=== PATIENT | male | born 1950 | race American Indian/Alaskan Native ===

== ENCOUNTER 2019-01-02 12:36 | Observation (INO) | payer MEDICARE, OTHER ==
--- NOTE | 2019-01-01 11:26 | Anesthesia Consultation ---
Anesthesia Consult and Med Hx Date of service: 01/02/19 - Airway Anesthetic Teeth Evaluation: Good, Partials (Upper) ROM Head & Neck: Adequate Mental/Hyoid Distance: Adequate Mallampati Class: Class II Intubation Access Assessment: Probably Good - Pre-Operative Health Status ASA Pre-Surgery Classification: ASA3, ASA4 Proposed Anesthetic Plan: General - Pulmonary Hx Smoking: No Hx Sleep Apnea: Yes (DX SLEEP APNEA WITH CPAP USE.) - Cardiovascular System Hx Hypertension: Yes (2015) Hx Heart Attack/AMI: No Hx Cardia Arrhythmia: Yes (AFIB. Last CHF episode [id number] (EF 14% at the time)) Hx Internal Defibrillator: Yes ([id number] Never discharged per pt) - Gastrointestinal Hx Gastroesophageal Reflux Disease: Yes - Endocrine Hx Non-Insulin Dependent Diabetes: Yes - Hematic Hx Anemia: Yes - Additional Comments Anesthesia Medical History Comments: +Cardiac and Medical Clearance. Chronic systolic heart failure; nonischemic cardiomyopathy; VT. Pt states he is active and can walk as far as he wants. ECHO EF improved to 40-45%
[2019-01-01 11:27] LABS: Basophils # (Auto) 0.1 K/mm3 (0.0-0.1); Basophils % (Auto) 1.1 % (0.0-1.8); Eosinophils # (Auto) 0.2 K/mm3 (0.0-0.4); Eosinophils % (Auto) 3.1 % (0.0-4.3); Hematocrit 40.4 % (35.5-45.6); Hemoglobin 13.1 gm/dl (11.8-15.2); Lymphocytes # (Auto) 1.4 K/mm3 (1.2-5.4); Lymphocytes % (Auto) 27.1 % (13.4-35.0); Mean Corpuscular HGB Conc 33 % (32-34); Mean Corpuscular Volume 87 fl (84-94); Monocytes # (Auto) 0.7 K/mm3 (0.0-0.8); Monocytes % (Auto) 13.6 % (0.0-7.3); Platelet Count 244 K/mm3 (140-440); Red Blood Count 4.63 M/mm3 (3.65-5.03); Red Cell Distribution Width 14.9 % (13.2-15.2)
[2019-01-01 11:52] LABS: Alanine Aminotransferase 16 units/L (7-56); Albumin 3.8 g/dL (3.9-5); BUN/Creatinine Ratio 19; Blood Urea Nitrogen 15 mg/dL (9-20); Calcium 9.6 mg/dL (8.4-10.2); Hemolysis Index 19
[~2019-01-02 12:36] MED LIST: GENTAMICIN/NS 80 MG/100 ML 100 ML IV SCH; VANCOMYCIN/NS 1 GM/250 ML 1 GM/250 ML BAG IV SCH
[2019-01-02] MEDS ORDERED: LACTATED RINGERS 1,000 ML ONE (13:49)
[2019-01-02] MEDS ORDERED: MIDAZOLAM 2 MG/2 ML INJ IV NR (14:12)
[2019-01-02] MEDS ORDERED: NEOMY 40 MG/POLYMYXIN B 200,000 UNITS/ML (GU) AMPULE IR ONE (14:42)
[2019-01-02] MEDS ORDERED: SODIUM CHLORIDE P/F VIAL 10 ML 10 ML ONE ×3 (14:42→15:11)
[2019-01-02] MEDS ORDERED: BUPIVACAINE/PF (0.5%) 5 MG/1 ML 30 ML VIAL INFILTRATI ONE ×3 (14:42→16:30)
[2019-01-02] MEDS ORDERED: LACTATED RINGERS 1,000 ML IV SCH (15:00)
[2019-01-02] MEDS ORDERED: SODIUM CHLORIDE 0.9% 50 ML ONE (15:11)
[2019-01-02] MEDS ORDERED: SODIUM CHLORIDE 0.9% 500 ML 0 ML ONE (15:11)
[2019-01-02] MEDS ORDERED: rifAMPin 600 MG VIAL ONE (15:11)
[2019-01-02] MEDS ORDERED: GENTAMICIN 40 MG/ML VIAL 2 ML ONE (15:11)
[2019-01-02] MEDS ORDERED: LIDOCAINE MPF (2%) 20 MG/1 ML VIAL 5 ML ONE (15:14)
[2019-01-02] MEDS ORDERED: fentaNYL 100 MCG/2 ML INJ ONE (15:15)
[2019-01-02] MEDS ORDERED: PROPOFOL 200 MG/20 ML VIAL IV ONE (15:15)
--- NOTE | 2019-01-02 15:46 | Anesthesia Day of Surgery ---
Anesthesia Day of Surgery - Day of Surgery Patient Examined: Yes Patient H&P Reviewed: Yes Patient is NPO: Yes Beta Blockers: Yes Cardiac Clearance: Yes
[2019-01-02] MEDS ORDERED: SODIUM CHLORIDE IR ONE (16:20)
[2019-01-02] MEDS ORDERED: [UNRECOGNIZED DRUG - OTHER] IR ONE (16:20)
[2019-01-02] MEDS ORDERED: GENTAMICIN 80 MG IR ONE (16:20)
[2019-01-02] MEDS ORDERED: NEOMY IR ONE (16:20)
[2019-01-02] MEDS ORDERED: RIFAMPIN 600 MG IR ONE (16:20)
[2019-01-02] MEDS ORDERED: VANCOMYCIN 1000 MG INJ ONE (16:23)
[2019-01-02] MEDS ORDERED: SODIUM CHLORIDE 0.9% 500 ML 500 ML ONE (16:24)
[2019-01-02] MEDS ORDERED: SODIUM CHLORIDE 0.9% 250ML 250 ML ONE (16:25)
[2019-01-02] MEDS ORDERED: SODIUM CHLORIDE 0.9% 500 ML IVPB IRRIGATION ONE (16:30)
[2019-01-02] MEDS ORDERED: WATER FOR IRRIG STERILE 1,000 ML BOTTLE IR ONE (16:30)
[2019-01-02] MEDS ORDERED: ONDANSETRON 4 MG/2 ML INJ IV PRN (17:38)
[2019-01-02] MEDS ORDERED: NALOXONE 0.4 MG/1 ML INJ IV PRN (17:38)
[2019-01-02] MEDS ORDERED: DEXTROSE 50% IN WATER (25GM) 50 ML SYRINGE IV PRN ×2 (17:38→17:50)
--- NOTE | 2019-01-02 17:38 | Short Stay Summary ---
Short Stay Documentation Date of service: 01/02/19 - History H&P: obtained from office - Allergies and Medications Current Medications: Allergies oxycodone [From Percocet] Allergy (Verified 12/27/18 16:29) Nausea , HEADACHE propoxyphene [From Darvon] Allergy (Verified 12/27/18 16:31) Nausea , HEADACHE simvastatin Allergy (Verified 12/27/18 16:32) MUSCLE WEAKNESS valsartan [From Diovan] Allergy (Verified 12/27/18 16:32) Unknown WAS TOLD BY MD NOT TO TAKE- UNKNOWN REACTION tuberculin,PPD,multi-puncture Adverse Reaction (Verified 12/27/18 16:31) Rash Home Medications Medication Instructions Recorded Confirmed Last Taken Type Aspirin 325 mg PO QDAY 12/27/18 01/02/19 12/25/18 08:00 History AtorvaSTATin [Lipitor] 10 mg PO QHS 12/27/18 01/02/19 01/02/19 08:00 History Cyanocobalamin (Vitamin B-12) 2,500 mcg PO DAILY 12/27/18 01/02/19 01/01/19 08:00 History [Vitamin B12] Furosemide [Lasix TAB] 40 mg PO BID 12/27/18 01/02/19 01/02/19 08:00 History ISOSORBIDE MONOnitrate [Imdur ER] 30 mg PO DAILY 12/27/18 01/02/19 01/02/19 08:00 History L. Acidophilus/Pectin, [place] 1 each PO DAILY 12/27/18 01/02/19 01/02/19 09:00 History [Acidophilus Probiotic Capsule] Losartan [Cozaar] 100 mg PO DAILY 12/27/18 01/02/19 01/02/19 08:00 History [place]-3/Dha/Epa/Fish Oil [Fish Oil 1 each PO DAILY 12/27/18 01/02/19 12/31/18 08:00 History 1,200 mg Softgel] Omeprazole 40 mg PO BID 12/27/18 01/02/19 01/01/19 08:00 History Spironolactone [Aldactone] 12.5 mg PO DAILY 12/27/18 01/02/19 01/01/19 08:00 History carvediloL [Coreg] 25 mg PO BID 12/27/18 01/02/19 01/02/19 08:00 History hydrALAZINE [Apresoline] 25 mg PO TID 12/27/18 01/02/19 01/02/19 08:00 History metFORMIN [Glucophage] 500 mg PO BID 12/27/18 01/02/19 01/01/19 18:00 History Active Medications Hydromorphone HCl (Dilaudid) 0.5 mg IV Q10MIN PRN PRN Reason: Pain , Severe (7-10) Stop: 01/02/19 23:59 Gentamicin Sulfate/Sodium Chloride (Gentamicin/Ns 80 Mg/100 Ml) 100 mls @ 200 mls/hr IV PREOP YOBANI Lactated Ringer's (Lactated Ringers) 1,000 mls @ 42 mls/hr IV DIRECT YOBANI Last Admin: 01/02/19 13:50 Dose: 42 mls/hr Documented by: Midazolam HCl (Versed) 2 mg IV PREOP NR Stop: 01/02/19 23:59 Last Admin: 01/02/19 14:25 Dose: 2 mg Documented by: - Brief post op/procedure progress note Date of procedure: 01/02/19 Pre-op diagnosis: ED Post-op diagnosis: same Procedure: ipp Coloplast (24 titan, 1RTE) Anesthesia: GETA Surgeon: KALYN CULP Pathology: none Condition: stable - Hospital course Hospital course: pt has abx & pain meds at home pt & daughter have copy of post op info crump & wrap removed dc home - Disposition Condition at discharge: Stable Disposition: DC-01 TO HOME OR SELFCARE Short Stay Discharge Plan Follow up with: JESUS GONZALEZ MD [Primary Care Provider] - 7 Days
--- NOTE | 2019-01-02 17:41 | Consultation ---
History of Present Illness - Reason for Consult Consult date: 01/02/19 Medical Management HTN, DM, Requesting physician: KALYN WATSON - History of Present Illness 68 YO Male with HTN, Obesity, BRITTANY, Atrial Fib, DM, GERD, Systolic CHF(EF 15%) S/P ICD Placement, DE. Admitted for elective Urologic surgery. Consult placed my Dr. Watson for medical management. Pt seen and evaluated upon arrival to his room. Pt denies fever, chills, CP, Palpitations, NVD, Trauma, productive cough, or recent ill contacts. No reported nursing events. Past History Past Medical History: other (see hpi) Past Surgical History: Other (Penile implant) Family history: diabetes, hypertension Medications and Allergies Allergies Allergy/AdvReac Type Severity Reaction Status Date / Time oxycodone [From Percocet] Allergy Nausea , Verified 12/27/18 16:29 HEADACHE propoxyphene [From Darvon] Allergy Nausea , Verified 12/27/18 16:31 HEADACHE simvastatin Allergy MUSCLE Verified 12/27/18 16:32 WEAKNESS valsartan [From Diovan] Allergy Unknown Verified 12/27/18 16:32 tuberculin,PPD,multi-puncture AdvReac Rash Verified 12/27/18 16:31 Home Medications Medication Instructions Recorded Confirmed Last Taken Type Aspirin 325 mg PO QDAY 12/27/18 01/02/19 12/25/18 08:00 History AtorvaSTATin [Lipitor] 10 mg PO QHS 12/27/18 01/02/19 01/02/19 08:00 History Cyanocobalamin (Vitamin B-12) 2,500 mcg PO DAILY 12/27/18 01/02/19 01/01/19 08:00 History [Vitamin B12] Furosemide [Lasix TAB] 40 mg PO BID 12/27/18 01/02/19 01/02/19 08:00 History ISOSORBIDE MONOnitrate [Imdur ER] 30 mg PO DAILY 12/27/18 01/02/19 01/02/19 08:00 History L. Acidophilus/Pectin, [place] 1 each PO DAILY 12/27/18 01/02/19 01/02/19 09:00 History [Acidophilus Probiotic Capsule] Losartan [Cozaar] 100 mg PO DAILY 12/27/18 01/02/19 01/02/19 08:00 History [place]-3/Dha/Epa/Fish Oil [Fish Oil 1 each PO DAILY 12/27/18 01/02/19 12/31/18 08:00 History 1,200 mg Softgel] Omeprazole 40 mg PO BID 12/27/18 01/02/19 01/01/19 08:00 History Spironolactone [Aldactone] 12.5 mg PO DAILY 12/27/18 01/02/19 01/01/19 08:00 History carvediloL [Coreg] 25 mg PO BID 12/27/18 01/02/19 01/02/19 08:00 History hydrALAZINE [Apresoline] 25 mg PO TID 12/27/18 01/02/19 01/02/19 08:00 History metFORMIN [Glucophage] 500 mg PO BID 12/27/18 01/02/19 01/01/19 18:00 History Active Meds: Active Medications Hydromorphone HCl (Dilaudid) 0.5 mg IV Q10MIN PRN PRN Reason: Pain , Severe (7-10) Stop: 01/02/19 23:59 Gentamicin Sulfate/Sodium Chloride (Gentamicin/Ns 80 Mg/100 Ml) 100 mls @ 200 mls/hr IV PREOP YOBANI Lactated Ringer's (Lactated Ringers) 1,000 mls @ 42 mls/hr IV DIRECT YOBANI Last Admin: 01/02/19 13:50 Dose: 42 mls/hr Documented by: Midazolam HCl (Versed) 2 mg IV PREOP NR Stop: 01/02/19 23:59 Last Admin: 01/02/19 14:25 Dose: 2 mg Documented by: Review of Systems Constitutional: no weight loss, no weight gain, no fever, no chills Ears, nose, mouth and throat: no ear pain, no ear discharge, no tinnitis, no decreased hearing, no nasal congestion, no nasal discharge, no sinus pressure Cardiovascular: no chest pain, no orthopnea, no rapid/irregular heart beat, no edema Respiratory: no cough, no cough with sputum, no hemoptysis, no shortness of breath, no dyspnea on exertion Gastrointestinal: no nausea, no vomiting, no diarrhea, no constipation, no change in bowel habits, no hematemesis Genitourinary Male: no hematuria, no flank pain, no discharge, no urinary frequency, no urinary hesitancy, no nocturia, no incontinence, no erectile dysfunction Rectal: no pain, no incontinence, no bleeding Musculoskeletal: no neck stiffness, no neck pain, no low back pain Integumentary: no rash, no pruritis, no redness, no wounds, no jaundice, no boils Neurological: no head injury, no paralysis, no parathesias, no numbness, no tingling, no seizures, no tremors Psychiatric: no anxiety, no memory loss, no change in sleep habits, no sleep disturbances, no hypersomnia, no change in appetite, no change in libido Endocrine: no cold intolerance, no heat intolerance, no polyphagia, no polydipsia, no polyuria, no excessive sweating, no proptosis, no deepening of the voice, no high blood sugars Hematologic/Lymphatic: no easy bruising, no easy bleeding, no lymphadenopathy, no lymphedema, no thrombophilia Allergic/Immunologic: no urticaria, no allergic rhinitis, no anaphylaxis, no angioedema Exam - Constitutional Vitals: Temp Pulse Resp BP Pulse Ox 99.2 F 74 16 147/72 99 01/02/19 13:30 01/02/19 13:30 01/02/19 13:30 01/02/19 13:30 01/02/19 13:30 General appearance: Present: obese - EENT Eyes: Present: PERRL ENT: hearing intact, clear oral mucosa - Neck Neck: Present: supple, normal ROM - Respiratory Respiratory effort: normal Respiratory: bilateral: CTA - Cardiovascular Heart Sounds: Present: S1 & S2. Absent: rub, click - Extremities Extremities: pulses symmetrical, No edema Peripheral Pulses: within normal limits - Abdominal General gastrointestinal: Present: soft, non-tender, non-distended, normal bowel sounds Male genitourinary: Present: normal - Integumentary Integumentary: Present: clear, warm, dry - Musculoskeletal Musculoskeletal: gait normal, strength equal bilaterally - Psychiatric Psychiatric: appropriate mood/affect, intact judgment & insight - Neurologic Neurologic: CNII-XII intact, moves all extremities Results - Labs CBC & Chem 7: 12/31/18 10:50 12/31/18 10:50 Labs: Abnormal lab results 01/02/19 Range/Units 13:36 POC Glucose 108 H (70-105) Assessment and Plan - Patient Problems (1) HTN (hypertension) Current Visit: Yes Status: Acute Qualifiers: Hypertension type: essential hypertension Qualified Code(s): I10 - Essential (primary) hypertension Plan to address problem: Monitor BP a shift, continue medical management, pain control (2) Diabetes Current Visit: Yes Status: Acute Plan to address problem: ADA diet, insulin, accu check, hypoglycemia protocol (3) Atrial fibrillation Current Visit: Yes Status: Acute Plan to address problem: continue rate control, resume previous anticoagulation as per primary team. (4) GERD (gastroesophageal reflux disease) Current Visit: Yes Status: Acute Qualifiers: Esophagitis presence: without esophagitis Qualified Code(s): K21.9 - Gastro-esophageal reflux disease without esophagitis Plan to address problem: PPI therapy, (5) CHF (congestive heart failure) Current Visit: Yes Status: Acute Qualifiers: Heart failure chronicity: chronic Plan to address problem: Strict I/O, daily weight, monitor uop q shift, early ambulation, low sodium diet, blood pressure control,
[2019-01-02] MEDS ORDERED: SODIUM CHLORIDE 0.45% 1000 ML 1,000 ML IV SCH (18:00)
[2019-01-02] MEDS ORDERED: INSULIN LISPRO 100 UNIT/ML SUB-Q SCH (18:00)
--- NOTE | 2019-01-02 18:20 | Operative Report ---
PREOPERATIVE DIAGNOSIS: Erectile dysfunction. POSTOPERATIVE DIAGNOSES: Erectile dysfunction. PROCEDURE: Insertion of inflatable penile prosthesis (Coloplast Titan 24 cm with 1 cm rear tip elementary librarian), injection of intracorporal pharmacologic agent. SURGEON: Tanner Watson MD ANESTHESIA: General. METER REPAIRER HELPER: Caitie Fischer. ESTIMATED BLOOD LOSS: Minimal. FLUIDS: Crystalloid. COMPLICATIONS: No complications. INDICATIONS: This 68-year-old gentleman with a long history of erectile dysfunction. He is status post radical prostatectomy by Dr. Jeffry Davis in the remote past. Also, has a history of diabetes and heart disease. His cardiac clearance was by Dr. Hackett. Discussed options. He agreed to proceed with surgical intervention. DESCRIPTION OF PROCEDURE: The patient was taken to the operative suite, placed in a supine position. After adequate general anesthesia, he was prepped and draped in a sterile fashion. A transurethral Ptae catheter was placed on the operative field. A transscrotal incision was made with Bovie. Sharp dissection was taken down to the corporal bodies. Metal [place] retractor was used for exposure. Injection of 0.25% Marcaine to help with postoperative pain as well as identify a plaque, had some mild curvature to the left, maybe 5-10 degrees, penis on stretch was 18 cm. 2-0 Vicryl stay sutures were placed, corporotomies were made bilaterally, gentle dilation of the corporal bodies were performed. Measurements revealed a total of 25 cm bilaterally; therefore, a 24 cm Titan device with a 1 cm rear tip elementary librarian was used. The device was prepped, 125 mL reservoir was placed in the retropubic space via the right external ring, 120 mL of saline was placed in the reservoir. The device was prepped, placed in the corporal bodies with the aid of a Tim needle. Adequate seating could be appreciated. Corporal bodies were then closed with 2-0 Vicryl in a running fashion. Using the quick click connection system., the cylinders were connected to the pump without difficulty, removed all the air out of the system. Insufflation revealed excellent erection. At that point, the pump was then connected to the reservoir with the quick click connection system. Now on the internal cycling, again we inflated and deflated with an excellent response. Copious irrigation was performed. Adequate hemostasis was achieved. The pump was placed in the dependent portion of the scrotum, pursestring closure in the dependent portion of the scrotum using a 2-0 Vicryl. [place] layer was closed with 2-0 Vicryl in a running fashion. Skin was closed in a transverse fashion using a 3-0 Vicryl in interrupted fashion. Collodion was placed, Xeroform gauze as well as a mummy wrap. The patient has small area that appeared to be a papilloma 3-4 mm. This was just cauterized on the dependent portion of the scrotum. The patient tolerated the procedure well and was extubated and taken to recovery room. He will be observed overnight, go home on Dilaudid and Bactrim. JOB# [id number] ELINA/HALEY
[2019-01-02] MEDS: HYDROmorphone 1 MG/1 ML INJ IV PRN ×2 (18:32→20:25)
--- NOTE | 2019-01-02 19:50 | Post Anesthesia Evaluation ---
- Post Anesthesia Evaluation Patient Participated: Yes Airway Patent: Yes Stable Respiratory Function: Yes Nausea/Vomiting: No Temp > 96.8F: Yes Pain Manageable: Yes Adequeate Hydration: Yes Anesthesia Complications: No
[2019-01-02] MEDS: hydrALAZINE 25 MG TAB PO SCH (20:34)
[2019-01-02] MEDS: ceFAZolin/NS 1 GM/50 ML 1 GM/50 ML BAG IV SCH (20:39)
[2019-01-02] MEDS: carvediloL 25 MG TAB PO SCH (21:04)
[2019-01-02] MEDS: FUROSEMIDE 40 MG TAB PO SCH (21:04)
[2019-01-02] MEDS ORDERED: metFORMIN 500 MG TAB PO SCH (22:00)
[2019-01-02] MEDS: HYDROmorphone 2 MG TAB PO PRN (22:28)
[2019-01-03] MEDS: INSULIN REGULAR, HUMAN 100 UNITS/1 ML SUB-Q SCH ×3 (00:28→11:54)
[2019-01-03] MEDS: HYDROmorphone 2 MG/1 ML INJ IV PRN ×2 (02:25→08:29)
[2019-01-03] MEDS: ceFAZolin/NS 1 GM/50 ML 1 GM/50 ML BAG IV SCH (05:21)
[2019-01-03] MEDS: hydrALAZINE 25 MG TAB PO SCH ×2 (08:27→14:18)
[2019-01-03] MEDS: carvediloL 25 MG TAB PO SCH (09:47)
[2019-01-03] MEDS: FUROSEMIDE 40 MG TAB PO SCH (09:48)
[2019-01-03] MEDS ORDERED: NON-FORMULARY EACH (Losartan [Cozaar] 100 MG) PO SCH (10:00)
[2019-01-03] MEDS ORDERED: LOSARTAN 50 MG TAB PO SCH (10:00)
[2019-01-03] MEDS ORDERED: SPIRONOLACTONE 25 MG TAB PO SCH (10:00)
--- NOTE | 2019-01-03 10:16 | Progress Note ---
Assessment and Plan Assessment and plan: 68M sp penile implant HTN (hypertension) Monitor BP a shift, continue medical management, pain control Diabetes ADA diet, insulin, accu check, hypoglycemia protocol Atrial fibrillation continue rate control, resume previous anticoagulation as per primary team. GERD (gastroesophageal reflux disease) : PPI therapy, CHF (congestive heart failure) Strict I/O, daily weight, monitor uop q shift, early ambulation, low sodium diet , blood pressure control, History Interval history: Review of systems Constitutional: No fevers, no malaise, no joint pains CVS: No chest pain, no orthopnea, no pedal edema GI: No abdominal pain, no diarrhea, no vomiting, no constipation Respiratory: , no wheezing, no coughing Hospitalist Physical - Physical exam Narrative exam: General.: Appears well, no distress, nontoxic HEENT: Moist mucous membranes, extraocular muscles intact, no lymphadenopathy Neck: supple Cardiac: S1-S2 heard Lungs: clear to auscultation bilaterally Abdomen: soft , nontender, nondistended, bowel sounds positive Extremities: no edema clubbing or cyanosis Skin: no rash or lesions Neurologic: no gross focal deficits Psych: calm, and cooperative - Constitutional Vitals: Temp Pulse Resp BP Pulse Ox 98 F 83 16 138/81 99 01/03/19 07:43 01/03/19 09:48 01/03/19 07:43 01/03/19 09:48 01/03/19 07:43 General appearance: Present: obese Results - Labs CBC & Chem 7: 12/31/18 10:50 12/31/18 10:50 Labs: Laboratory Last Values WBC 5.2 K/mm3 (4.5-11.0) 12/31/18 10:50 RBC 4.63 M/mm3 (3.65-5.03) 12/31/18 10:50 Hgb 13.1 gm/dl (11.8-15.2) 12/31/18 10:50 Hct 40.4 % (35.5-45.6) 12/31/18 10:50 MCV 87 fl (84-94) 12/31/18 10:50 MCH 28 pg (28-32) 12/31/18 10:50 MCHC 33 % (32-34) 12/31/18 10:50 RDW 14.9 % (13.2-15.2) 12/31/18 10:50 Plt Count 244 K/mm3 (140-440) 12/31/18 10:50 Lymph % (Auto) 27.1 % (13.4-35.0) 12/31/18 10:50 [place] % (Auto) 13.6 % (0.0-7.3) H 12/31/18 10:50 Eos % (Auto) 3.1 % (0.0-4.3) 12/31/18 10:50 Baso % (Auto) 1.1 % (0.0-1.8) 12/31/18 10:50 Lymph # 1.4 K/mm3 (1.2-5.4) 12/31/18 10:50 [place] # 0.7 K/mm3 (0.0-0.8) 12/31/18 10:50 Eos # 0.2 K/mm3 (0.0-0.4) 12/31/18 10:50 Baso # 0.1 K/mm3 (0.0-0.1) 12/31/18 10:50 Seg Neutrophils % 55.1 % (40.0-70.0) 12/31/18 10:50 Seg Neutrophils # 2.9 K/mm3 (1.8-7.7) 12/31/18 10:50 Sodium 141 mmol/L (137-145) 12/31/18 10:50 Potassium 3.9 mmol/L (3.6-5.0) 12/31/18 10:50 Chloride 106.4 mmol/L (98-107) 12/31/18 10:50 Carbon Dioxide 21 mmol/L (22-30) L 12/31/18 10:50 Anion Gap 18 mmol/L 12/31/18 10:50 BUN 15 mg/dL (9-20) 12/31/18 10:50 Creatinine 0.8 mg/dL (0.8-1.5) 12/31/18 10:50 Estimated GFR > 60 ml/min 12/31/18 10:50 BUN/Creatinine Ratio 19 % 12/31/18 10:50 Glucose 155 mg/dL (75-100) H 12/31/18 10:50 POC Glucose 120 (70-105) H 01/03/19 07:12 Calcium 9.6 mg/dL (8.4-10.2) 12/31/18 10:50 Total Bilirubin 0.20 mg/dL (0.1-1.2) 12/31/18 10:50 AST 16 units/L (5-40) 12/31/18 10:50 ALT 16 units/L (7-56) 12/31/18 10:50 Alkaline Phosphatase 93 units/L (35-129) 12/31/18 10:50 Total Protein 7.5 g/dL (6.3-8.2) 12/31/18 10:50 Albumin 3.8 g/dL (3.9-5) L 12/31/18 10:50 Albumin/Globulin Ratio 1.0 % 12/31/18 10:50 Active Medications - Current Medications Current Medications: Generic Name Dose Route Start Last Admin Trade Name Freq PRN Reason Stop Dose Admin Atorvastatin Calcium 10 mg 01/02/19 22:00 01/02/19 21:04 Atorvastatin PO 10 mg QHS YOBANI Administration Carvedilol 25 mg 01/02/19 22:00 01/03/19 09:47 Coreg PO 25 mg BID YOBANI Administration Dextrose 50 ml 01/02/19 17:50 D50w (25gm) Syringe IV Q30MIN PRN Hypoglycemia Protocol Furosemide 40 mg 01/02/19 22:00 01/03/19 09:48 Lasix PO 40 mg BID YOBANI Administration Hydralazine HCl 25 mg 01/02/19 20:00 01/03/19 08:27 Apresoline PO 25 mg TID YOBANI Administration Hydromorphone HCl 2 mg 01/02/19 17:44 01/03/19 08:29 Dilaudid IV 2 mg Q4H PRN Administration Pain , Severe (7-10) Hydromorphone HCl 2 mg 01/02/19 17:45 01/02/19 22:28 Dilaudid PO 2 mg Q4H PRN Administration Pain , Severe (7-10) Lactated Ringer's 1,000 mls @ 42 mls/hr 01/02/19 15:00 01/02/19 13:50 Lactated Ringers IV 42 mls/hr DIRECT YOBANI Administration Sodium Chloride 1,000 mls @ 100 mls/hr 01/02/19 18:00 Nacl 0.45% 1000 Ml IV DIRECT YOBANI Insulin Human Regular 0 units 01/02/19 22:00 01/03/19 08:35 Humulin R SUB-Q Not Given ACHS YOBANI Protocol Isosorbide Mononitrate 30 mg 01/03/19 10:00 01/03/19 09:48 Imdur PO 30 mg DAILY YOBANI Administration Losartan Potassium 100 mg 01/03/19 10:00 01/03/19 09:45 Cozaar PO 100 mg QDAY YOBANI Administration Naloxone HCl 0.1 mg 01/02/19 17:38 Naloxone IV Q2MIN PRN Res Rate </= 8 or 02 SAT < 92% Ondansetron HCl 4 mg 01/02/19 17:38 Zofran IV Q8H PRN N/V unrelieved by Anaya Spironolactone 12.5 mg 01/03/19 10:00 01/03/19 09:45 Aldactone PO 12.5 mg DAILY YOBANI Administration
[2019-01-03] MEDS: HYDROmorphone 2 MG TAB PO PRN (12:03)
[2019-01-03 14:21] VITALS: BP 116/59
--- NOTE | 2019-01-03 14:24 | Progress Note ---
Assessment and Plan wrap removed to void catheter out Subjective Date of service: 01/03/19 Principal diagnosis: ed Objective - Constitutional Vitals: Vital Signs - 12hr 01/03/19 01/03/19 01/03/19 05:21 05:26 07:43 Temperature 97.5 F L 98 F Pulse Rate 76 83 Respiratory 20 16 Rate Blood Pressure 137/72 Blood Pressure 135/81 [Left] O2 Sat by Pulse 99 99 Oximetry 01/03/19 01/03/19 01/03/19 08:27 09:45 09:47 Temperature Pulse Rate 83 83 83 Respiratory Rate Blood Pressure 138/81 138/81 138/81 Blood Pressure [Left] O2 Sat by Pulse Oximetry 01/03/19 01/03/19 01/03/19 09:48 12:14 14:18 Temperature 98.5 F Pulse Rate 83 77 85 Respiratory 20 Rate Blood Pressure 138/81 116/59 Blood Pressure 125/66 [Left] O2 Sat by Pulse 97 Oximetry General appearance: Present: no acute distress - Neck Neck: supple - Respiratory Respiratory effort: normal Extremities: no ischemia - Gastrointestinal General gastrointestinal: Present: soft, non-tender - Genitourinary Male genitourinary: tender - Labs CBC & Chem 7: 12/31/18 10:50 12/31/18 10:50 Labs: Abnormal lab results 01/02/19 01/02/19 01/03/19 Range/Units 18:46 22:20 07:12 POC Glucose 114 H 194 H 120 H (70-105) 01/03/19 Range/Units 11:33 POC Glucose 173 H (70-105) Medications & Allergies - Medications Allergies/Adverse Reactions: Allergies oxycodone [From Percocet] Allergy (Verified 12/27/18 16:29) Nausea , HEADACHE propoxyphene [From Darvon] Allergy (Verified 12/27/18 16:31) Nausea , HEADACHE simvastatin Allergy (Verified 12/27/18 16:32) MUSCLE WEAKNESS valsartan [From Diovan] Allergy (Verified 12/27/18 16:32) Unknown WAS TOLD BY MD NOT TO TAKE- UNKNOWN REACTION tuberculin,PPD,multi-puncture Adverse Reaction (Verified 12/27/18 16:31) Rash Home Medications: Home Medications Medication Instructions Recorded Confirmed Last Taken Type Aspirin 325 mg PO QDAY 12/27/18 01/02/19 12/25/18 08:00 History AtorvaSTATin [Lipitor] 10 mg PO QHS 12/27/18 01/02/19 01/02/19 08:00 History Cyanocobalamin (Vitamin B-12) 2,500 mcg PO DAILY 12/27/18 01/02/19 01/01/19 08:00 History [Vitamin B12] Furosemide [Lasix TAB] 40 mg PO BID 12/27/18 01/02/19 01/02/19 08:00 History ISOSORBIDE MONOnitrate [Imdur ER] 30 mg PO DAILY 12/27/18 01/02/19 01/02/19 08:00 History L. Acidophilus/Pectin, [place] 1 each PO DAILY 12/27/18 01/02/19 01/02/19 09:00 History [Acidophilus Probiotic Capsule] Losartan [Cozaar] 100 mg PO DAILY 12/27/18 01/02/19 01/02/19 08:00 History [place]-3/Dha/Epa/Fish Oil [Fish Oil 1 each PO DAILY 12/27/18 01/02/19 12/31/18 08:00 History 1,200 mg Softgel] Omeprazole 40 mg PO BID 12/27/18 01/02/19 01/01/19 08:00 History Spironolactone [Aldactone] 12.5 mg PO DAILY 12/27/18 01/02/19 01/01/19 08:00 History carvediloL [Coreg] 25 mg PO BID 12/27/18 01/02/19 01/02/19 08:00 History hydrALAZINE [Apresoline] 25 mg PO TID 12/27/18 01/02/19 01/02/19 08:00 History metFORMIN [Glucophage] 500 mg PO BID 12/27/18 01/02/19 01/01/19 18:00 History Active Medications: Generic Name Dose Route Start Last Admin Trade Name Freq PRN Reason Stop Dose Admin Atorvastatin Calcium 10 mg 01/02/19 22:00 01/02/19 21:04 Atorvastatin PO 10 mg QHS YOBANI Administration Carvedilol 25 mg 01/02/19 22:00 01/03/19 09:47 Coreg PO 25 mg BID YOBANI Administration Dextrose 50 ml 01/02/19 17:50 D50w (25gm) Syringe IV Q30MIN PRN Hypoglycemia Protocol Furosemide 40 mg 01/02/19 22:00 01/03/19 09:48 Lasix PO 40 mg BID YOBANI Administration Hydralazine HCl 25 mg 01/02/19 20:00 01/03/19 14:18 Apresoline PO 25 mg TID YOBANI Administration Hydromorphone HCl 2 mg 01/02/19 17:44 01/03/19 08:29 Dilaudid IV 2 mg Q4H PRN Administration Pain , Severe (7-10) Hydromorphone HCl 2 mg 01/02/19 17:45 01/03/19 12:03 Dilaudid PO 2 mg Q4H PRN Administration Pain , Severe (7-10) Lactated Ringer's 1,000 mls @ 42 mls/hr 01/02/19 15:00 01/02/19 13:50 Lactated Ringers IV 42 mls/hr DIRECT YOBANI Administration Sodium Chloride 1,000 mls @ 100 mls/hr 01/02/19 18:00 Nacl 0.45% 1000 Ml IV DIRECT YOBANI Insulin Human Regular 0 units 01/02/19 22:00 01/03/19 11:54 Humulin R SUB-Q 2 units ACHS YOBANI Administration Protocol Isosorbide Mononitrate 30 mg 01/03/19 10:00 01/03/19 09:48 Imdur PO 30 mg DAILY YOBANI Administration Losartan Potassium 100 mg 01/03/19 10:00 01/03/19 09:45 Cozaar PO 100 mg QDAY YOBANI Administration Naloxone HCl 0.1 mg 01/02/19 17:38 Naloxone IV Q2MIN PRN Res Rate </= 8 or 02 SAT < 92% Ondansetron HCl 4 mg 01/02/19 17:38 Zofran IV Q8H PRN N/V unrelieved by Anaya Spironolactone 12.5 mg 01/03/19 10:00 01/03/19 09:45 Aldactone PO 12.5 mg DAILY YOBANI Administration
--- NOTE | 2019-01-03 14:25 | Discharge Summary ---
Short Stay Discharge Plan Activity: other (no lifting of straining ) Weight Bearing Status: Full Weight Bearing Diet: low fat, low cholesterol, low salt Wound: open to air Special Instructions: other (keep dry ) Follow up with: JESUS GONZALEZ MD [Primary Care Provider] - 7 Days
== END 2019-01-03 17:37 | disposition home or self-care (01) ==
LOC: OR 12:36 → 3B-SURG 17:39
PROVIDERS: ADMIT Urology; ATTEND Urology
DX: N52.9 Male erectile dysfunction, unspecified (principal); I11.0 Hypertensive heart disease with heart failure; I50.9 Heart failure, unspecified; E11.9 Type 2 diabetes mellitus without complications; I48.91 Unspecified atrial fibrillation; K21.9 Gastro-esophageal reflux disease without esophagitis; Z79.82 Long term (current) use of aspirin; Z79.4 Long term (current) use of insulin
CPT/HCPCS: 36415; 54401; 80053; 82962; 85025; 94660; 96365; 96366; 96372; 96375; 96376; A9270; C1813; G0378; J0690; J1170; J1580; J2250; J2704; J3010; J3370; J3490; J7040; J7050; J7120; J1815